=== PATIENT | female | born 1975 | race Hispanic/Latino ===

== ENCOUNTER 2021-04-15 02:07 | Emergency (ER) | payer OTHER, SELFPAY ==
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
--- NOTE | ~2021-04-15 | CT_ITS ---
EXAMINATION: CT cervical spine wo con DATE: 04/15/2021 04:30 INDICATION: Neck pain TECHNIQUE: Computed tomography (CT) of the cervical spine was performed without intravenous contrast. The dose-length product (DLP) was 456.48 mGy-cm. Automated exposure control and iterative reconstruc tion technique were employed. COMPARISON: None FINDINGS: There are 2 mm of retrolisthesis of C4 on C5. There is moderate loss of intervertebral disc space height at C4-5 and C5-6. The vertebral body heights are maintained. There are posterior endpla te osteophytes at C4-5, C5-6, and C6-7. The odontoid is intact. The prevertebral soft tissues are nor mal. No fracture is identified. There is moderate facet and uncovertebral joint osteoarthritis in the mid cervical spine. IMPRESSION: 1. Mild to moderate mid cervical spondylosis without acute findings. Reviewed, dictated and finalized at location A.
[2021-04-15 02:24] VITALS: BP 179/107; PULSE 61; RESP 18; TEMP 36.5; O2SAT 99
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
[2021-04-15] MEDS: KETOROLAC 30 MG/ML VIAL (*BKC) IV PUSH (02:52)
[2021-04-15 03:10] LABS: Basophils Percent Auto 0.7 % (0.2-1.2); Eosinophils Absolute Auto 0.1 K/mm3 (0-0.3); Eosinophils Percent Auto 1.5 % (0-4.4); Hematocrit 32.9 % (37.0-47.0); Hemoglobin 10.2 g/dL (12.0-15.0); Immature Granulocyte Absolute 0.02 K/mm3 (0.00-0.031); Immature Granulocyte Percent A 0.3 % (0-0.5); Lymphocytes Absolute Auto 2.11 K/mm3 (0.9-3.2); Lymphocytes Percent Auto 34.7 % (18.3-44.2); Mean Corpuscular Hemoglobin 25.2 pg (26-34); Mean Corpuscular Volume 81.4 fl (80-100); Monocytes Absolute Auto 0.8 K/mm3 (0.1-0.6); Monocytes Percent Auto 12.5 % (2.6-8.5); Neutrophils Absolute Auto 3.1 K/mm3 (1.3-6.7); Neutrophils Percent Auto 50.3 % (45.5-73.1); Platelet Count Result 343 k/mm3 (150-375); Red Blood Count 4.04 M/mm3 (4.2-5.4); Red Cell Distribution Width 15.6 % (11.5-14.5); White Blood Count 6.1 K/mm3 (4.5-10.0)
[2021-04-15 03:19] VITALS: BP 161/99; PULSE 56; RESP 16; TEMP 36.7; O2SAT 100
[2021-04-15 03:36] LABS: Add Urine Microscopic? YES; Appearance Urine Cloudy (Clear); Bacteria Urine Trace /hpf; Bilirubin Urine Negative (Negative); Blood Urine 1+ (Negative); Color Urine Yellow (Yellow); Glucose Urine UA Negative (Negative); Ketones Urine Negative (Negative); Leukocyte Esterase Ur 2+ LEU/UL (Negative); Mucus Urine Heavy /lpf; Nitrate Urine Negative (Negative); Protein Urine Negative (Negative); Specific Grav Ur 1.019 (1.001-1.035); Squamous Epithelial Cell Urine Occasional /hpf (Few); Urobilinogen Urine Negative mg/dL (<2.0); WBC Urine >75 /hpf
[2021-04-15 03:54] LABS: Alanine Aminotransferase 17 U/L (4-35); Alkaline Phosphatase 71 U/L (38-126); Anion Gap 6 mmol/L (8-16); Aspartate Amino Transferase 21 U/L (14-36); Bilirubin,Total 0.3 mg/dL (0.2-1.3); Blood Urea Nitrogen 11 mg/dL (7-17); Calcium 9.1 mg/dL (8.4-10.2); Carbon Dioxide 26 mmol/L (22-30); Chloride 104 mmol/L (98-107); Estimated CRCL calculation 111 ml/min; Estimated Glomerular Filt Rate > 60; Glucose 98 mg/dL (65-110); Lipase 37 U/L (23-300); Potassium 3.7 mmol/L (3.4-5.0); Sodium 136 mmol/L (137-145)
--- NOTE | 2021-04-15 04:11 | PC.NURSE ---
Pt to CT via stretcher at this time.
[2021-04-15 04:40] VITALS: BP 149/86; PULSE 65; RESP 18; O2SAT 100
[2021-04-15 05:41] VITALS: BP 161/85; PULSE 58; RESP 16; O2SAT 98
== END 2021-04-15 05:56 | disposition home or self-care (01) ==
PROVIDERS: Emergency Provider Emergency Medicine; PCP Registered Nurse
DX: S16.1XXA Strain of muscle, fascia and tendon at neck level, initial encounter (principal); R07.89 Other chest pain; N39.0 Urinary tract infection, site not specified; V49.40XA Driver injured in collision with unspecified motor vehicles in traffic accident, initial encounter
CPT/HCPCS: 36415; 71260; 72125; 74177; 80053; 81001; 81025; 83690; 85025; 87077; 87086; 87088; 87186; 96374; 99284; J1885; Q9967

== ENCOUNTER 2021-09-25 15:17 | Emergency (ER) | payer SELFPAY ==
[2021-09-25] VITALS (16 sets, daily range): BP systolic 150–187; BP diastolic 86–109; PULSE 53–74; RESP 13–22; TEMP 36.6; O2SAT 95–100
--- NOTE | ~2021-09-25 | XR_ITS ---
EXAMINATION: XR chest 2V EXAM DATE: 09/25/2021 16:06 INDICATION: chest pain . TECHNIQUE: Frontal and lateral projections of the chest obtained and reviewed. Comparison is made to prior examination from 04/17/2018. FINDINGS: The lungs are clear. There are no pleural effusions. The cardiomediastinal silhouette is within normal limits. There is no pneumothorax suspected. The bones and soft tissues are unremarkab le. IMPRESSION: No acute cardiopulmonary findings. Reviewed, dictated and finalized at location G. [employer]
--- NOTE | 2021-09-25 15:20 | ECG_ITS ---
Measurements Intervals [place] Rate: 62 P: 55 NC: 145 QRS: 3 QRSD: 84 T: 22 QT: 399 QTc: 407 Interpretive Statements SINUS RHYTHM VOLTAGE CRITERIA FOR LVH BASELINE ARTIFACT- I, III, AVL, AVF BORDERLINE ECG Electronically Signed On 09-25-2021 17:32:22 [employer] by Rudolph Cardona D.O.
[2021-09-25 15:36] LABS: Basophils Absolute Auto 0.1 K/mm3 (0.0-0.1); Basophils Percent Auto 0.8 % (0.2-1.2); Eosinophils Absolute Auto 0.2 K/mm3 (0-0.3); Eosinophils Percent Auto 2.6 % (0-4.4); Hematocrit 35.9 % (37.0-47.0); Hemoglobin 11.3 g/dL (12.0-15.0); Immature Granulocyte Absolute 0.01 K/mm3 (0.00-0.031); Immature Granulocyte Percent A 0.2 % (0-0.5); Lymphocytes Absolute Auto 2.19 K/mm3 (0.9-3.2); Lymphocytes Percent Auto 35.4 % (18.3-44.2); Mean Corpuscular HGB Conc 31.5 g/dl (32-36); Mean Corpuscular Hemoglobin 25.7 pg (26-34); Mean Corpuscular Volume 81.6 fl (80-100); Mean Platelet Volume 10.1 fl (7.4-10.4); Monocytes Absolute Auto 0.6 K/mm3 (0.1-0.6); Neutrophils Absolute Auto 3.2 K/mm3 (1.3-6.7); Platelet Count Result 324 k/mm3 (150-375); White Blood Count 6.2 K/mm3 (4.5-10.0)
[2021-09-25 15:46] LABS: INR 1.1; Prothrombin Time 13.7 Seconds (11.1-14.7)
[2021-09-25 15:47] LABS: Partial Thromboplastin Time 28.1 SECONDS (22.3-36.8)
[2021-09-25 15:53] LABS: Alanine Aminotransferase 23 U/L (4-35); Albumin Level 4.5 g/dL (3.5-5.1); Alkaline Phosphatase 82 U/L (38-126); Anion Gap 9 mmol/L (8-16); Aspartate Amino Transferase 29 U/L (14-36); Bilirubin,Total 0.2 mg/dL (0.2-1.3); Blood Urea Nitrogen 16 mg/dL (7-17); Calcium 8.8 mg/dL (8.4-10.2); Carbon Dioxide 26 mmol/L (22-30); Chloride 104 mmol/L (98-107); Estimated CRCL calculation 85 ml/min; Estimated Glomerular Filt Rate > 60; Glucose 107 mg/dL (65-110); Lipase 60 U/L (23-300); Potassium 3.8 mmol/L (3.4-5.0); Sodium 139 mmol/L (137-145)
[2021-09-25 16:05] LABS: Troponin I < 0.012 ng/mL (0.000-0.034)
--- NOTE | 2021-09-25 18:36 | ED.CHESTPAIN ---
HPI - Chest Pain General Chief Complaint: Chest Pain Stated Complaint: chest pain Time Seen by Provider: 09/25/21 17:51 History of Present Illness HPI narrative: 46-year-old female present emergency department for evaluation of intermittent chest pain. Patient states yesterday she was doing some cleaning and some heavy lifting when she had onset of anterior left-sided chest pain. Patient states when the pain occurs last approximately 1 hour. Patient states the pain is not worsened with exertion but is worsened with heavy lifting. Patient states after the pain resolved she did lift more items and had a recurrence of the pain. Patient denies any previous cardiac history. Patient denies any associated nausea vomiting or shortness of breath. Patient denies any significant past medical history Related Data Home Medications Medication Instructions Recorded Confirmed atenolol 04/15/21 Allergies Allergy/AdvReac Type Severity Reaction Status Date / Time No Known Allergies Allergy Verified 04/15/21 02:38 Review of Systems Review of Systems: CONSTITUTIONAL: Denies fever, chills, or sweats. EYES: Denies visual changes, redness, or discharge. ENT: Denies rhinorrhea, congestion, sore throat, or otalgia. CARDIOVASCULAR: Left-sided chest wall pain worsened with lifting, denies any palpitations and denies edema RESPIRATORY: Denies cough or dyspnea. GASTROINTESTINAL: Denies abdominal pain, nausea, vomiting, or diarrhea. GENITOURINARY: Denies dysuria or hematuria. SKIN: Denies rash or itching. MUSCULOSKELETAL: Denies back pain, joint pain, or myalgia. NEUROLOGIC: Denies headache, numbness, or weakness. PMFSH Social History Social History Gender identity (if verbalized by the patient): Female Exam Narrative: APPEARANCE: Well appearing, no pain, no distress, well-nourished. HEAD: normocephalic, atraumatic. EYES: PERRLA/EOMI, conjunctivae clear. NOSE: Normal no drainage THROAT: Pharynx clear, no exudate. NECK: Supple. No adenopathy, no masses. RESPIRATORY: Airway patent, respirations nonlabored. Clear to auscultation bilaterally, no rales, rhonchi, wheezing. CARDIOVASCULAR: Regular rate and rhythm without murmurs rubs or gallops. ABDOMINAL: Soft, nontender, nondistended, normal bowel sounds MUSCULOSKELETAL: Moves all extremities. Strength/ROM intact, No edema, No calf tenderness. Reproducible left-sided chest wall tenderness to palpation NEURO: Alert. Cranial nerves II through XII intact. Good gait. Good coordination SKIN: Warm, dry. Normal Color Course Course Emergency Course: Patient's labs and imaging were reviewed. Patient had negative serial troponins. Patient's chest x-ray showed no acute cardiopulmonary abnormality. Patient''s EKG showed no evidence of acute STEMI. Clinical impression was chest wall pain and atypical chest pain Disposition was discharged home Condition was stable at time of discharge Vital Signs Vital signs: Vital Signs Temperature 98 F 09/25/21 15:32 Pulse Rate 70 09/25/21 15:32 Respiratory Rate 18 09/25/21 15:32 Blood Pressure 187/98 H 09/25/21 15:32 Pulse Oximetry 95 09/25/21 15:32 Temperature 98 F 09/25/21 15:32 Pulse Rate 59 L 09/25/21 22:46 Respiratory Rate 17 09/25/21 22:46 Blood Pressure 169/91 H 09/25/21 22:46 Pulse Oximetry 100 09/25/21 22:46 MDM - Chest Pain Differential Diagnosis Differential diagnosis: Likely atypical chest pain and chest pain Lab Data Attestation: I reviewed the patient's lab results. Result diagrams: 09/25/21 15:29 09/25/21 15:29 Labs: Lab Results 09/25/21 09/25/21 09/25/21 Range/Units 15:29 15:29 15:29 WBC 6.2 (4.5-10.0) K/mm3 RBC 4.40 (4.2-5.4) M/mm3 Hgb 11.3 L (12.0-15.0) g/dL Hct 35.9 L (37.0-47.0) % MCV 81.6 (80-100) fl MCH 25.7 L (26-34) pg MCHC 31.5 L (32-36) g/dl RDW 15.0 H (1
[2021-09-25] MEDS: ASPIRIN 81 MG CHEWABLE TABLET 324 MG PO (18:41)
[2021-09-25 18:43] LABS: Troponin I < 0.012 ng/mL (0.000-0.034)
[2021-09-25 21:41] LABS: Troponin I < 0.012 ng/mL (0.000-0.034)
== END 2021-09-25 23:08 | disposition home or self-care (01) ==
PROVIDERS: Emergency Provider Emergency Medicine; PCP Registered Nurse
DX: R07.89 Other chest pain (principal); R94.31 Abnormal electrocardiogram [ECG] [EKG]; X50.0XXA Overexertion from strenuous movement or load, initial encounter
CPT/HCPCS: 36415; 71046; 80053; 83690; 84484; 85025; 85610; 85730; 93005; 99284; A9270

== ENCOUNTER 2022-07-25 01:01 | Emergency (ER) | payer SELFPAY ==
[2022-07-25] VITALS (36 sets, daily range): BP systolic 143–205; BP diastolic 87–123; PULSE 50–80; RESP 11–23; TEMP 36.8; O2SAT 96–100
--- NOTE | ~2022-07-25 | XR_ITS ---
EXAMINATION: XR chest 2V DATE: 07/25/2022 03:10 INDICATION: Chest pain. TECHNIQUE: Frontal and lateral views of the chest were obtained. COMPARISON: Chest 2 views 09/25/2021, chest CT 04/15/2021 FINDINGS: There is mild atelectasis in left lower lung zone. No pleural effusion or pneumothorax. The heart size is normal. IMPRESSION: 1. Mild atelectasis in left lower lung zone. Reviewed, dictated and finalized at location A. [employer]
--- NOTE | 2022-07-25 01:16 | ECG_ITS ---
Measurements Intervals [place] Rate: 69 P: 52 GA: 151 QRS: 12 QRSD: 85 T: 29 QT: 387 QTc: 416 Interpretive Statements SINUS RHYTHM DELAYED PRECORDIAL R/S TRANSITION VOLTAGE CRITERIA FOR LVH BORDERLINE ECG COMPARED TO ECG 09/25/2021 15:21:59 NO SIGNIFICANT CHANGES Electronically Signed On 07-25-2022 7:48:48 ANVILSMITH by Rudolph Cardona D.O.
--- NOTE | 2022-07-25 02:01 | ED.CHESTPAIN ---
HPI - Chest Pain General Chief Complaint: Chest Pain Stated Complaint: CP Time Seen by Provider: 07/25/22 01:39 Source: patient and RN notes reviewed Mode of arrival: ambulatory Limitations: language barrier (diplomatic interpreter use) History of Present Illness HPI narrative: This is a 47 year old female who presents for evaluation of chest pain. She states she developed midsternal chest pain starting yesterday. She describes her pain has pressure that has been constant. She reports her pain went into her back today. Her pain seems worse with cough. She denies associated diaphoresis, sob, nausea, vomiting or fever. She took tylenol at 8 pm with out relief. She denies any previous medical problems. She rates her pain as 7/10. MD complaint: chest pain Onset (ago): day(s) Timing of current episode: constant Onset: other (coughing) Pain radiation: back Quality: heaviness Relieving factors: nothing Risk Factors Coronary artery disease risk factors: none Related Data Home Medications Medication Instructions Recorded Confirmed atenolol 50 mg tablet 04/15/21 Allergies Allergy/AdvReac Type Severity Reaction Status Date / Time No Known Allergies Allergy Verified 04/15/21 02:38 Review of Systems Review of Systems: All systems reviewed & are unremarkable except as noted in HPI and below Constitutional: Constitutional: Denies chills, Denies fatigue and Denies fever(s) Cardiovascular: Cardiovascular: Reports chest pain and Reports radiating jaw, neck or arm pain Respiratory: Respiratory: Denies chest congestion and Reports cough Gastrointestinal: Gastrointestinal: Denies abdominal pain, Denies nausea and Denies vomiting PMFSH Past Medical History Medical History (Updated 07/25/22 @ 07:03 by Zita Gould MD) Patient denies medical problems Surgical History Surgical History (Updated 07/25/22 @ 02:05 by Zita Gould MD) No pertinent past surgical history Social History Social History (Updated 07/25/22 @ 02:05 by Zita Gould MD) Smoking status: Never smoker Substance use: never Gender identity (if verbalized by the patient): Female Exam Narrative: GENERAL: Well-appearing, well-nourished, and in no acute distress. HEAD: Normocephalic, atraumatic EYES: PERRLA and EOMI, conjunctiva clear without discharge THROAT:Mucous membranes moist, Oropharynx normal without erythema, exudate, peritonsillar swelling or fluctuance NECK: Supple, without lymphadenopathy or mass RESPIRATORY: No respiratory distress, Airway patent, Respirations non-labored, Clear to auscultation without rales, rhonchi or wheeze HEART: Regular rate and rhythm. No murmur heard. Normal peripheral pulses. ABDOMEN: Soft, nontender, nondistended, normal active bowel sounds. No masses. No rebound or guarding, No organomegaly. EXTREMITIES: No edema, normal strength with full range of motion. SKIN: Warm, dry, normal color without rash NEURO: Alert and oriented x3. CN 2-12 grossly intact. No focal deficits. PSYCH: Normal mood and affect. Course Reevaluation(s) Reevaluation #1: Patient states her chest pain has completely resolved. She rates her pain as 0/10. I Discussed case with Dr. Cardona. he states patient can be discharged and follow up in clinic . Date: 07/25/22 Time: 04:19 Reevaluation #2: Patient states her chest pain and back pain have still resolved. Troponin x 2 . d dimer negative. She states she is on antihypertensives but she did not take it yesterday. I discussed discharge and follow up plan Date: 07/25/22 Time: 07:00 Vital Signs Vital signs: Vital Signs Temperature 98.2 F 07/25/22 01:09 Pulse Rate 72 07/25/22 01:09 Respiratory Rate 14 07/25/22 01:09 Blood Pressure 205/100 H 07/25/22 01:09 Pulse Oximetry 100 07/25/22 01:09 Oxygen Delivery Room Air 07/25/22 01:09 Temperature 98.2 F 07/25/22 01:09 Pulse Rate 64 07/25/22 05:51 Respiratory Rate 18 07/25/22 05:51 Blood Pre
[2022-07-25] MEDS: ASPIRIN 81 MG CHEWABLE TABLET 324 MG PO (02:20)
[2022-07-25] MEDS: NITROGLYCERIN SL 0.4 MG TABLET SUBLINGUAL (02:21)
[2022-07-25 02:34] LABS: Basophils Absolute Auto 0.1 K/mm3 (0.0-0.1); Eosinophils Absolute Auto 0.3 K/mm3 (0-0.3); Eosinophils Percent Auto 4.4 % (0-4.4); Hematocrit 33.4 % (37.0-47.0); Hemoglobin 10.4 g/dL (12.0-15.0); Immature Granulocyte Absolute 0.02 K/mm3 (0.00-0.031); Immature Granulocyte Percent A 0.3 % (0-0.5); Lymphocytes Absolute Auto 2.17 K/mm3 (0.9-3.2); Lymphocytes Percent Auto 35.1 % (18.3-44.2); Mean Corpuscular HGB Conc 31.1 g/dl (32-36); Mean Corpuscular Hemoglobin 25.4 pg (26-34); Mean Corpuscular Volume 81.5 fl (80-100); Mean Platelet Volume 10.4 fl (7.4-10.4); Monocytes Absolute Auto 0.8 K/mm3 (0.1-0.6); Monocytes Percent Auto 12.5 % (2.6-8.5); Neutrophils Absolute Auto 2.9 K/mm3 (1.3-6.7); Neutrophils Percent Auto 46.7 % (45.5-73.1); Platelet Count Result 352 k/mm3 (150-375); Red Cell Distribution Width 15.9 % (11.5-14.5); White Blood Count 6.2 K/mm3 (4.5-10.0)
--- NOTE | 2022-07-25 02:46 | PC.NURSE ---
patient received 1 nitro with relief from 03/20-12/19. per Dr Gould, another nitro given
[2022-07-25 02:52] LABS: Alanine Aminotransferase 17 U/L (6-35); Albumin Level 4.3 g/dL (3.5-5.1); Alkaline Phosphatase 86 U/L (38-126); Anion Gap 9 mmol/L (8-16); Aspartate Amino Transferase 21 U/L (14-36); Bilirubin,Total 0.3 mg/dL (0.2-1.3); Blood Urea Nitrogen 14 mg/dL (7-17); Calcium 8.7 mg/dL (8.4-10.2); Carbon Dioxide 27 mmol/L (22-30); Chloride 104 mmol/L (98-107); Estimated CRCL calculation 90 ml/min; Estimated Glomerular Filt Rate > 60; Glucose 114 mg/dL (65-110); Lipase 56 U/L (23-300); Potassium 3.4 mmol/L (3.4-5.0); Sodium 140 mmol/L (137-145)
--- NOTE | 2022-07-25 02:58 | PC.NURSE ---
after patient received 2nd dose of nitro which took chest pain from 12/19 to 11/18. Per Dr. Gould, patient received 3rd dose
[2022-07-25 03:03] LABS: Troponin I < 0.012 ng/mL (0.000-0.034)
[2022-07-25 03:10] LABS: Influenza A QL RT-PCR Negative (Negative); Influenza B QL RT-PCR Negative (Negative); SARS-CoV-2 RNA PCR Negative
[2022-07-25 03:11] LABS: INR 1.1; Prothrombin Time 13.6 Seconds (11.1-14.7)
[2022-07-25 03:12] LABS: Partial Thromboplastin Time 29.2 SECONDS (22.3-36.8)
[2022-07-25 03:17] LABS: D Dimer 0.39 ug/mL (<0.48)
[2022-07-25 06:10] LABS: Troponin I < 0.012 ng/mL (0.000-0.034)
== END 2022-07-25 07:36 | disposition home or self-care (01) ==
PROVIDERS: Emergency Provider General Practice
DX: R07.89 Other chest pain (principal); I10 Essential (primary) hypertension; R94.31 Abnormal electrocardiogram [ECG] [EKG]
CPT/HCPCS: 36415; 71046; 80053; 83690; 84484; 85025; 85380; 85610; 85730; 87636; 93005; 99284; A9270

== ENCOUNTER 2023-05-24 22:08 | Emergency (ER) | payer SELFPAY ==
--- NOTE | ~2023-05-24 | CT_ITS ---
Non-contrast Head CT History: Headache, hypertension Technique: Axial non-contrast imaging of the brain was performed. Dose reduction technique was used on this scan by utilizing automated exposure control and iterative reconstruction technique. The dose -length product (DLP) was 605.33 mGy-cm. Findings: There is no evidence of intracranial hemorrhage, mass lesion, or acute infarct. Brain par enchyma appears normal. The ventricles and subarachnoid spaces are normal in size. The calvarium ap pears normal. The visualized paranasal sinuses and mastoid air cells are clear. Impression: No significant abnormality seen. Reviewed, dictated and finalized at location . Impression: No significant abnormality seen.
--- NOTE | ~2023-05-24 | XR_ITS ---
EXAMINATION: XR chest 2V DATE: 05/24/2023 22:57 INDICATION: Chest pain TECHNIQUE: PA and lateral views of the chest are obtained. COMPARISON: 07/25/2022 FINDINGS: There are interstitial opacities in the mid and lower lung zone predominance. No pleural ef fusion or pneumothorax. The cardiomediastinal silhouette is normal. There is moderate thoracic spondy losis. IMPRESSION: 1. Interstitial opacities in the mid and lower lung zones, likely pulmonary edema. Reviewed, dictated and finalized at location F. IMPRESSION: 1. Interstitial opacities in the mid and lower lung zones, likely pulmonary anabell ma.
--- NOTE | 2023-05-24 22:10 | ECG_ITS ---
Measurements Intervals [place] Rate: 72 P: 49 [place]: 153 QRS: 12 QRSD: 113 T: 54 QT: 393 QTc: 432 Interpretive Statements SINUS RHYTHM LEFT VENTRICULAR HYPERTROPHY AND ST-T CHANGE BORDERLINE ECG COMPARED TO ECG 07/25/2022 01:08:48 NO SIGNIFICANT CHANGES Electronically Signed On 05-25-2023 6:35:09 CDT by Rudolph Cardona D.O.
[2023-05-24 22:34] VITALS: BP 197/97; PULSE 74; RESP 20; TEMP 36.6; O2SAT 100
[2023-05-24 22:38] LABS: Basophils Absolute Auto 0.1 K/mm3 (0.0-0.1); Basophils Percent Auto 1.1 % (0.2-1.2); Eosinophils Absolute Auto 0.3 K/mm3 (0-0.3); Eosinophils Percent Auto 4.7 % (0-4.4); Hematocrit 31.8 % (37.0-47.0); Hemoglobin 9.6 g/dL (12.0-15.0); Immature Granulocyte Absolute 0.01 K/mm3 (0.00-0.031); Immature Granulocyte Percent A 0.2 % (0-0.5); Lymphocytes Absolute Auto 1.51 K/mm3 (0.9-3.2); Lymphocytes Percent Auto 22.7 % (18.3-44.2); Mean Corpuscular HGB Conc 30.2 g/dl (32-36); Mean Corpuscular Hemoglobin 23.4 pg (26-34); Mean Corpuscular Volume 77.6 fl (80-100); Mean Platelet Volume 10.8 fl (7.4-10.4); Monocytes Absolute Auto 1.1 K/mm3 (0.1-0.6); Monocytes Percent Auto 16.4 % (2.6-8.5); Neutrophils Absolute Auto 3.7 K/mm3 (1.3-6.7); Neutrophils Percent Auto 54.9 % (45.5-73.1); Platelet Count Result 311 k/mm3 (150-375); Red Cell Distribution Width 16.7 % (11.5-14.5); White Blood Count 6.7 K/mm3 (4.5-10.0)
[2023-05-24 22:48] LABS: Prothrombin Time 13.8 Seconds (11.1-14.7)
[2023-05-24 22:49] LABS: Partial Thromboplastin Time 27.1 SECONDS (22.3-36.8)
[2023-05-24 22:52] LABS: Alanine Aminotransferase 20 U/L (6-35); Albumin Level 4.1 g/dL (3.5-5.1); Alkaline Phosphatase 81 U/L (38-126); Anion Gap 6 mmol/L (8-16); Aspartate Amino Transferase 27 U/L (14-36); Bilirubin,Total 0.2 mg/dL (0.2-1.3); Blood Urea Nitrogen 13 mg/dL (7-17); Calcium 8.9 mg/dL (8.4-10.2); Carbon Dioxide 28 mmol/L (22-30); Chloride 102 mmol/L (98-107); Estimated CRCL calculation 112 ml/min; Estimated Glomerular Filt Rate > 60; Glucose 138 mg/dL (65-110); Lipase 80 U/L (23-300); Potassium 3.5 mmol/L (3.4-5.0); Sodium 136 mmol/L (137-145)
[2023-05-24 23:03] LABS: Troponin I < 0.012 ng/mL (0.000-0.034)
--- NOTE | 2023-05-25 02:01 | ED.CHESTPAIN ---
HPI - Chest Pain General Chief Complaint: Chest Pain Stated Complaint: chest pain Time Seen by Provider: 05/25/23 01:38 History of Present Illness HPI narrative: 47 y/o F with history of hypertension reports to the ED for evaluation for chest pain since yesterday. Pt states the chest pain is in her left anterior chest wall and radiates to her back. She describes the pain as pleuritic and worse with exertion. Pt reports associated dyspnea. She denies cough but does report a subjective fever yesterday. Denies BLE, recent surgeries or hospitalizations, nausea or vomiting, diaphoresis. Denies history of DC, CABG, stent placement, CVA. Her father has a history of CVA. She is also reporting a bitemporal headache since yesterday. She states the pain is 5 out of 10. Denies vision changes, focal numbness or weakness, head trauma, nuchal rigidity. Pt states she has not taken her atenolol in 4 months because she ran out. Related Data Home Medications Medication Instructions Recorded Confirmed atenolol 50 mg tablet 04/15/21 Allergies Allergy/AdvReac Type Severity Reaction Status Date / Time No Known Allergies Allergy Verified 05/24/23 22:37 Review of Systems Review of Systems: CONSTITUTIONAL: Denies fever, chills EYES: Denies visual changes, redness, or discharge. ENT: Denies rhinorrhea, congestion, sore throat, or otalgia. CARDIOVASCULAR: See HPI RESPIRATORY: See HPI GASTROINTESTINAL: Denies abdominal pain, nausea, vomiting, or diarrhea. GENITOURINARY: Denies dysuria or hematuria. SKIN: Denies rash or itching. MUSCULOSKELETAL: Denies back pain, joint pain, or myalgia. NEUROLOGIC: Denies headache, numbness, dizziness, or weakness. PSYCHIATRIC: Denies anxiety or depression. [facility] Past Medical History Medical History Patient denies medical problems Surgical History Surgical History No pertinent past surgical history Social History Social History Smoking status: Never smoker Substance use: never Gender identity (if verbalized by the patient): Female Exam Narrative: GENERAL: Well-appearing, in no acute distress. Patient resting comfortably in exam bed. She is pleasant and conversational. HEAD: Normocephalic EYES: PERRLA ENT: Nares clear. Mucous membranes moist. Oropharynx without tonsillar hypertrophy exudate or other lesions. NECK: Supple. No nuchal rigidity. CHEST: No respiratory distress. Clear to auscultation, no adventitious breath sounds. HEART: Regular rate and rhythm. No murmur heard. Normal peripheral pulses. ABDOMEN: Soft, nontender, normal active bowel sounds. EXTREMITIES: Normal range of motion. No edema. Negative Homans bilaterally. SKIN: Warm, dry, no rash. NEURO: No focal deficits. Alert and oriented x3. Cranial nerves II through XII intact. Strength 5/5 in BUE and BLE. Sensation intact throughout. Normal [id number]. No pronator drift. PSYCH: Normal mood and affect. Course Vital Signs Vital signs: Vital Signs Temperature 97.9 F 05/24/23 22:34 Pulse Rate 74 05/24/23 22:34 Respiratory Rate 20 05/24/23 22:34 Blood Pressure 197/97 H 05/24/23 22:34 Pulse Oximetry 100 05/24/23 22:34 Oxygen Delivery Room Air 05/24/23 22:34 Temperature 97.9 F 05/24/23 22:34 Pulse Rate 74 05/24/23 22:34 Respiratory Rate 20 05/24/23 22:34 Blood Pressure 197/97 H 05/24/23 22:34 Pulse Oximetry 100 05/24/23 22:34 Oxygen Delivery Room Air 05/24/23 22:34 MDM - Chest Pain MDM Narrative Medical decision making narrative: 47-year-old female reports for evaluation for chest pain and headache since yesterday. See HPI for further history. Vitals significant for hypertension for 197/97, otherwise unremarkable. She is satting 100% on room air. She is well-appearing on exam. No f
[2023-05-25] MEDS: ASPIRIN 81 MG CHEWABLE TABLET 324 MG PO (02:25)
[2023-05-25] MEDS: NITROGLYCERIN SL 0.4 MG TABLET SUBLINGUAL (02:27)
[2023-05-25 02:33] LABS: D Dimer 0.34 ug/mL (<0.48)
[2023-05-25 02:37] LABS: NT Pro B Type Natriuretic Pept 811 pg/mL (19.9-100)
[2023-05-25 02:40] LABS: Troponin I < 0.012 ng/mL (0.000-0.034)
[2023-05-25 02:56] LABS: Add Urine Microscopic? YES; Appearance Urine Clear (Clear); Bacteria Urine None Seen /hpf; Bilirubin Urine Negative (Negative); Color Urine Yellow (Yellow); Glucose Urine UA Negative (Negative); Ketones Urine Negative (Negative); Leukocyte Esterase Ur Negative LEU/UL (Negative); Nitrate Urine Negative (Negative); Non Pathogenic Casts 0-2; Protein Urine Negative (Negative); RBC Urine 0-2 /hpf (0-2); Specific Grav Ur 1.011 (1.001-1.035); Squamous Epithelial Cell Urine Occasional /hpf (Few); Urobilinogen Urine 0.2 mg/dL (<2.0); WBC Urine 0-5 /hpf; pH Urine 6.5 (5.0-9.0)
[2023-05-25] MEDS: ACETAMINOPHEN 500 MG TABLET 1000 MG PO (04:31)
[2023-05-25] MEDS: FUROSEMIDE TABLET 20 MG, FUROSEMIDE TABLET 40 MG 60 MG PO (04:31)
[2023-05-25 04:41] VITALS: BP 170/100; PULSE 93; RESP 17; O2SAT 97
== END 2023-05-25 04:43 | disposition home or self-care (01) ==
PROVIDERS: Emergency Medicine; Emergency Provider Physician Assistant
DX: R07.89 Other chest pain (principal); I10 Essential (primary) hypertension; I51.7 Cardiomegaly
CPT/HCPCS: 36415; 70450; 71046; 80053; 81001; 83690; 83880; 84484; 85025; 85380; 85610; 85730; 93005; 99284; A9270

== ENCOUNTER 2023-10-21 14:12 | Emergency (ER) | payer SELFPAY ==
--- NOTE | ~2023-10-21 | CT_ITS ---
Clinical Indication: Chest pain, back pain CT Scan of the Chest with Contrast: Technique: Contiguous sections were acquired throughout the chest after intravenous administration of 100 cc of Omnipaque 350. Dose reduction technique was used on this scan by utilizing automated expos ure control and iterative reconstruction technique. The dose-length product (DLP) was 239.20 mGy-cm. COMPARISON: 04/15/2021 Findings: There is no evidence of any significant mediastinal, hilar or axillary lymphadenopathy. There is no f illing defect in the pulmonary arterial tree to suggest pulmonary embolus. There is no evidence of ao rtic dissection or aneurysm. There is no evidence of pleural or pericardial effusion. The lungs are clear, aside from minimal atelectatic changes. Images through the upper abdomen reveal no abnormalities. Impression: No evidence of pulmonary embolus, aortic dissection, or aortic aneurysm. No significant pulmonary abnormality. Reviewed, dictated and finalized at [facility]. NAUTICAL DESIGN ENGINEER Impression: No evidence of pulmonary embolus, aortic dissection, or aortic aneurysm. No significant pulmonary abnormality.
[2023-10-21 14:23] VITALS: BP 184/100; PULSE 76; RESP 16; TEMP 36.7; O2SAT 99
[2023-10-21 18:03] VITALS: BP 150/82; PULSE 52; RESP 20; O2SAT 98
[2023-10-21 18:21] VITALS: BP 138/90; PULSE 52; RESP 15; O2SAT 100
--- NOTE | 2023-10-21 19:23 | ED.BACK ---
HPI - Back Pain/Injury General Chief Complaint: Back Pain/Injury Stated Complaint: BACK PAIN X3D Time Seen by Provider: 10/21/23 17:57 Source: patient and family Limitations: no limitations and language barrier (glass science engineer used, ID # [id number]) History of Present Illness HPI Narrative: Patient is a 48-year-old female presents to the emergency department complaining of back pain. Patient states the pain has been going on for the past 3 days, originally was calmer and going and now is more constant, describes it as the top of her back more on the right side, admits to associated paresthesias radiating down her right arm throughout the entirety of the right arm addition to some associated mild shortness of breath. Patient admits to history of this pain in the past she was an accident many years ago has been having pain ever since but it seems to be getting worse denies ever seeing a spinal specialist, admits to coming recently to the hospital was given medications of which she is unsure as to what they were but they did help. Patient is taking Tylenol to do her own. Patient denies any recent injuries, recent illness, fever, cough abdominal pain, nausea, vomiting, diarrhea, melena, hematochezia, urinary discomfort, weakness, vision changes, difficulty swallowing, sore throat, nasal congestion. Patient also states that seems like the pain and back is also associated with some slight chest discomfort which she is unable to localize is unsure if they are associated with there is radiation 1 to the other. Patient is to history of high blood pressure. Patient denies a history of diabetes or tobacco use or high cholesterol. Patient denies history of blood clots or unilateral lower extremity swelling. Related Data Home Medications Medication Instructions Recorded Confirmed lisinopril-hydrochlorothiazide 10/21/23 Allergies Allergy/AdvReac Type Severity Reaction Status Date / Time No Known Allergies Allergy Verified 10/21/23 18:22 Review of Systems Review of Systems: A 10 system review of systems was completed on the patient and is negative except for what is stated in the HPI. Nursing and ancillary documentation was reviewed. [facility] Past Medical History Medical History Patient denies medical problems Surgical History Surgical History No pertinent past surgical history Social History Social History Smoking status: Never smoker Substance use: never Gender identity (if verbalized by the patient): Female Comments At time of signature, I have reviewed and agree with nursing past medical, surgical, social and family history unless otherwise noted. Please see the nursing chart for further information. There is no relevant family history pertinent to the presenting complaint. Exam Narrative: CONST: No acute distress. Well nourished. HENMT: Head is normocephalic and atraumatic. Moist mucous membranes. No posterior oropharynx erythema. EYES: No conjunctival icterus, injection, or pallor. PERRL. NECK: No meningeal signs. No JVD. No palpable cervical lymphadenopathy. No carotid bruits on auscultation bilaterally. RESP: Able to speak in full sentences. Normal respiratory effort. CTAB. CARDIO: Regular rate. Regular rhythm. 2+ DP and radial pulses bilaterally. GI: Nondistended. No tenderness to palpation. Soft. : No CVA tenderness to palpation. SKIN: No rashes or lesions noted on exposed skin. NEURO: Oriented x3. Moves all extremities. No focal neurological deficits. Sensation intact to light touch throughout all 4 extremities. Ring Cutter Lathe Operator strength is 5/5 in bilateral upper extremities. Motor strength is 5/5 in all 4 extremities. EXTREM/MSK/BACK: No pedal edema. No midline vertebral tenderness to palpation or step-offs. No extremity te
--- NOTE | 2023-10-21 19:28 | ECG_ITS ---
Measurements Intervals [place] Rate: 43 P: 31 ME: 151 QRS: 16 QRSD: 92 T: 66 QT: 468 QTc: 399 Interpretive Statements SINUS BRADYCARDIA NONSPECIFIC ST & T-WAVE ABNORMALITY ABNORMAL ECG COMPARED TO ECG 05/24/2023 22:28:11 SINUS BRADYCARDIA NOW PRESENT T-WAVE ABNORMALITY NOW PRESENT Electronically Signed On 10-22-2023 8:19:18 HOTEL MAINTENANCE ENGINEER by Severo South M.D.
[2023-10-21 20:17] LABS: Influenza A QL RT-PCR Negative (Negative); Influenza B QL RT-PCR Negative (Negative); RSV RNA, RT-PCR Negative (Negative); SARS-CoV-2 RNA PCR Negative (Negative)
[2023-10-21] MEDS: diazePAM (*CRX) 5 MG TABLET PO (20:35)
[2023-10-21] MEDS: SODIUM CHLORIDE 0.9% IV 1,000 ML 999 ML IV CONT (20:37)
[2023-10-21 20:49] LABS: Basophils Percent Auto 0.6 % (0.2-1.2); Eosinophils Absolute Auto 0.1 K/mm3 (0-0.3); Eosinophils Percent Auto 2.2 % (0-4.4); Hematocrit 32.4 % (37.0-47.0); Hemoglobin 9.7 g/dL (12.0-15.0); Immature Granulocyte Absolute 0.01 K/mm3 (0.00-0.031); Immature Granulocyte Percent A 0.2 % (0-0.5); Lymphocytes Absolute Auto 2.04 K/mm3 (0.9-3.2); Lymphocytes Percent Auto 32.1 % (18.3-44.2); Mean Corpuscular HGB Conc 29.9 g/dl (32-36); Mean Corpuscular Hemoglobin 23.4 pg (26-34); Mean Corpuscular Volume 78.3 fl (80-100); Mean Platelet Volume 10.6 fl (7.4-10.4); Monocytes Absolute Auto 0.8 K/mm3 (0.1-0.6); Monocytes Percent Auto 13.1 % (2.6-8.5); Neutrophils Absolute Auto 3.3 K/mm3 (1.3-6.7); Neutrophils Percent Auto 51.8 % (45.5-73.1); Platelet Count Result 297 k/mm3 (150-375); Red Blood Count 4.14 M/mm3 (4.2-5.4); Red Cell Distribution Width 18.2 % (11.5-14.5); White Blood Count 6.4 K/mm3 (4.5-10.0)
[2023-10-21 21:08] LABS: Anisocytosis 1+ (NORMAL); Large Platelets Present; Platelet Estimate Adequate (Adequate)
[2023-10-21 21:09] LABS: Ovalocytes 1+ (NORMAL); Schistocytes None Seen (NORMAL)
[2023-10-21 21:16] LABS: Giant Platelets Present
[2023-10-21 21:18] LABS: Hypochromasia 2+ (NORMAL)
[2023-10-21 21:22] LABS: Alanine Aminotransferase 18 U/L (6-35); Albumin Level 4.1 g/dL (3.5-5.1); Alkaline Phosphatase 71 U/L (38-126); Anion Gap 3 mmol/L (8-16); Aspartate Amino Transferase 26 U/L (14-36); Bilirubin,Total 0.3 mg/dL (0.2-1.3); Blood Urea Nitrogen 13 mg/dL (7-17); Carbon Dioxide 29 mmol/L (22-30); Chloride 105 mmol/L (98-107); Estimated Glomerular Filt Rate > 60; Glucose 97 mg/dL (65-110); Lipase 58 U/L (23-300); Magnesium 2.1 mg/dL (1.6-2.3); Sodium 137 mmol/L (137-145)
[2023-10-21 21:22] LABS: SPREG INTERNAL CONTROL Positive; Serum Qual hCG Negative
[2023-10-21 21:23] LABS: Troponin I < 0.012 ng/mL (0.000-0.034)
[2023-10-21 21:30] LABS: Creatine Kinase 59 U/L (30-135)
[2023-10-21] MEDS: KETOROLAC 15 MG/ML VIAL (*BKC) 30 MG IV PUSH (22:15)
[2023-10-21 22:47] VITALS: BP 140/86; PULSE 52; RESP 15; O2SAT 100
== END 2023-10-21 22:48 | disposition home or self-care (01) ==
PROVIDERS: Emergency Provider Student in an Organized Health Care Education/Training Program
DX: M54.12 Radiculopathy, cervical region (principal); M62.830 Muscle spasm of back; R07.9 Chest pain, unspecified; Z20.822 Contact with and (suspected) exposure to COVID-19
CPT/HCPCS: 36415; 71275; 80053; 82550; 83690; 83735; 84484; 84703; 85025; 87637; 93005; 96361; 96374; 99284; A9270; J1885; J7030; Q9967

== ENCOUNTER 2024-01-25 14:05 | Emergency (ER) | payer SELFPAY ==
[2024-01-25] VITALS (11 sets, daily range): BP systolic 158–195; BP diastolic 85–157; PULSE 59–85; RESP 16–20; TEMP 36.8; O2SAT 95–100
--- NOTE | ~2024-01-25 | XR_ITS ---
EXAMINATION: XR shoulder LT min 2V DATE: 01/25/2024 15:10 INDICATION: Left shoulder pain. TECHNIQUE: 4 views of left shoulder were obtained. COMPARISON: None. FINDINGS: Bone alignment is normal. No fracture. Glenohumeral joint is normal. There is severe acromi oclavicular joint osteoarthritis. There is calcific tendinitis of the rotator cuff. IMPRESSION: 1. Severe acromioclavicular joint osteoarthritis. 2. Calcific tendinitis of left rotator cuff. Reviewed, dictated and finalized at location E.
--- NOTE | 2024-01-25 14:14 | ECG_ITS ---
SEE SCANNED COPY FOR CONFIRMED REPORT MTDD
--- NOTE | 2024-01-25 15:48 | ED.GENADULT ---
HPI - General Adult General Chief complaint: Recheck/Abnormal Lab/Rx Stated complaint: L arm and shoulder pain Time Seen by Provider: 01/25/24 15:02 History of Present Illness HPI narrative: 48-year-old female presented emergency department for evaluation of left shoulder pain this been ongoing for the last 3 days. Patient states initially the pain is very reproducible with motion. Patient denies any specific falls or injuries. Patient states when she lifts her left arm above her head she has left shoulder pain. Patient denies any associated chest pain or shortness of breath. Patient had a follow-up with her primary care physician today and was told to present to the emergency department for her hypertension. Patient states she has not taken her blood pressure medications recently. Primary CT shows that she has not filled her medications since September. Related Data Home Medications Medication Instructions Recorded Confirmed lisinopril-hydrochlorothiazide 10/21/23 Allergies Allergy/AdvReac Type Severity Reaction Status Date / Time No Known Allergies Allergy Verified 01/25/24 14:14 Review of Systems Review of Systems: All systems reviewed & are unremarkable except as noted in HPI and below PMFSH Past Medical History Medical History Patient denies medical problems Surgical History Surgical History No pertinent past surgical history Social History Social History Smoking status: Never smoker Substance use: never Gender identity (if verbalized by the patient): Female Exam Narrative: APPEARANCE: Well appearing, no pain, no distress, well-nourished. HEAD: normocephalic, atraumatic. EYES: PERRLA/EOMI, conjunctivae clear. NOSE: Normal no drainage EARS:TMS clear with good light reflex. THROAT: Pharynx clear, no exudate. NECK: Supple. No adenopathy, no masses. RESPIRATORY: Airway patent, respirations nonlabored. Clear to auscultation bilaterally, no rales, rhonchi, wheezing. CARDIOVASCULAR: Regular rate and rhythm without murmurs rubs or gallops. ABDOMINAL: Soft, nontender, nondistended, normal bowel sounds MUSCULOSKELETAL: Moves all extremities. Strength/ROM intact, No edema, No calf tenderness. NEURO: Alert. Cranial nerves II through XII intact. Good gait. Good coordination SKIN: Warm, dry. Normal Color Course Vital Signs Vital signs: Vital Signs Temperature 98.2 F 01/25/24 14:11 Pulse Rate 85 01/25/24 14:11 Respiratory Rate 16 01/25/24 14:11 Blood Pressure 194/85 H 01/25/24 14:11 Pulse Oximetry 99 01/25/24 14:11 Temperature 98.2 F 01/25/24 14:11 Pulse Rate 59 L 01/25/24 16:59 Respiratory Rate 20 01/25/24 16:59 Blood Pressure 181/93 H 01/25/24 16:59 Pulse Oximetry 99 01/25/24 16:59 Medical Decision Making MDM Narrative Medical decision making narrative: 48-year-old female presents emergency department for evaluation of left shoulder pain and hypertension. Patient has not been taking her blood pressure medications. Patient was treated with blood pressure medications emergency department and blood pressure is improving. Patient is asymptomatic regarding her blood pressure. Patient does have reproducible left shoulder pain with evidence of osteoarthritis and rotator cuff calcifications. Patient was encouraged of close follow-up with Orthopedics. Patient was provided a sling for pain control. Differential Diagnosis Differential Diagnosis: rotator cuff injury, shoulder fracture, shoulder dislocation, shoulder subluxation Vital Signs Vital Signs: Vital Signs Temperature 98.2 F 01/25/24 14:11 Pulse Rate 85 01/25/24 14:11 Respiratory Rate 16 01/25/24 14:11 Blood Pressure 194/85 H 01/25/24 14:11 Pulse Oximetry 99 01/25/24 14:11 Temperature 98.2 F
[2024-01-25] MEDS: atenoloL 50 MG TABLET PO (16:06)
[2024-01-25] MEDS: hydroCHLOROthiazide 25 MG TABLET PO (16:07)
[2024-01-25] MEDS: lisinopriL 20 MG TABLET PO (16:07)
== END 2024-01-25 17:02 | disposition home or self-care (01) ==
PROVIDERS: Emergency Provider Emergency Medicine; PCP Registered Nurse
DX: I10 Essential (primary) hypertension (principal); M25.512 Pain in left shoulder; T46.4X6A Underdosing of angiotensin-converting-enzyme inhibitors, initial encounter; M19.012 Primary osteoarthritis, left shoulder; M75.32 Calcific tendinitis of left shoulder; I51.7 Cardiomegaly
CPT/HCPCS: 73030; 93005; 99283; A4565; A9270

== ENCOUNTER 2024-11-08 15:20 | Emergency (ER) | payer SELFPAY ==
[2024-11-08] VITALS (8 sets, daily range): BP systolic 129–224; BP diastolic 78–120; PULSE 75–97; RESP 15–18; TEMP 36.7–37.5; O2SAT 98–100
--- NOTE | 2024-11-08 15:22 | ED.CHESTPAIN ---
HPI - Chest Pain General Chief Complaint: Chest Pain <Ann Baer PA-C - Last Filed: 11/09/24 15:24> Stated Complaint: cp <Ann Baer PA-C - Last Filed: 11/09/24 15:24> Time Seen by Provider: 11/08/24 15:22 <Ann Baer PA-C - Last Filed: 11/09/24 15:24> Focused HPI: This is a 49 year old female that presents to the ER for chest pain. This has been ongoing over the last 3 days. She feels short of breath. Reports associated back pain. Reports history of hypertension. No history of CAD. Reports family history of heart problems. She is not a smoker. She did not take her blood pressure medication today. GENERAL: Well-appearing, well-nourished, and in no acute distress. HEAD: Normocephalic, atraumatic. CHEST: Clear to auscultation. ?No respiratory distress. HEART: Regular rate and rhythm.? NEURO: ?Alert and oriented x3. Patient screened in triage and initial orders placed.? ?Additional care and disposition to be based upon?diagnostic testing and treatment. <Ann Baer PA-C - Last Filed: 11/09/24 15:24> History of Present Illness HPI narrative: Agree with the HPI above. Patient is primarily [place]-speaking but does understand and speak in Polish. Patient has no personal history of coronary disease or heart attack but has strong family history of coronary disease. Remote history of hypertension previously treated with antihypertensive but states that she was taking off of the med she was doing well. She presents hypertensive here today with chest pain radiating towards her back. No neurological complaints. Some pleuritic component to her chest discomfort as well. Denies any injuries, falls, recent trauma. No recent abdominal pain, nausea or vomiting. No weakness or neurological complaints. <Rickey Zambrano MD - Last Filed: 11/08/24 22:50> Related Data Home Medications: Home Medications ?Medication ?Instructions ?Recorded ?Confirmed ?Last Taken ?Type lisinopril-hydrochlorothiazide 10/21/23 Unknown History <Ann Baer PA-C - Last Filed: 11/09/24 15:24> Allergies/Adverse Reactions: Allergies Allergy/AdvReac Type Severity Reaction Status Date / Time No Known Allergies Allergy Verified 11/08/24 19:48 <Ann Baer PA-C - Last Filed: 11/09/24 15:24> Review of Systems Review of Systems: As reviewed above in HPI <Rickey Zambrano MD - Last Filed: 11/08/24 22:50> PMFSH Past Medical History Medical History: Medical History Patient denies medical problems <Ann Baer PA-C - Last Filed: 11/09/24 15:24> Surgical History Surgical History: Surgical History No pertinent past surgical history <Ann Baer PA-C - Last Filed: 11/09/24 15:24> Social History Social History: Social History Smoking status: Never smoker Substance use: never Gender identity (if verbalized by the patient): Female <Ann Baer PA-C - Last Filed: 11/09/24 15:24> Exam Narrative: GENERAL: [Well-appearing, well-nourished, and in no acute distress.] HEAD: [Normocephalic, atraumatic.] EYES: [PERRLA and EOMI.] ENT: Nares clear, no rhinorrhea or epistaxis. Mucous membranes moist. NECK: Supple. CHEST: [Clear to auscultation. No respiratory distress.] HEART: [Regular rate and rhythm]. No murmur heard. [Normal peripheral pulses.] ABDOMEN: [Soft, nondistended], [nontender], [No rigidity or guarding] EXTREMITIES: Normal range of motion. [No edema.] SKIN: Warm, dry, no rash. NEURO: [No focal deficits]. Alert and oriented [x3.] PSYCH: [Normal mood and affect.] <Rickey Zambrano MD - Last Filed: 11/08/24 22:50> Course Vital Signs Vital signs: Vital Signs Temperature 99.5 F 11/08/24 15:29 Pulse Rate 84 11/08/24 15:29 Respiratory Rate 18 11/08/24 15:29 Blood Pressure 198/115 H 11/08/24 15:29 Pulse Oximetry 99 11/08/24 15:29 Oxygen Delivery Room Air 11/08/24 15:29 Temperature 98.1 F 11/08/24 21:40 Pulse Rate 81 11/08/24 21:40 Respiratory Rate 16 11/08/24 21:40 Blood Pressure 129/78 11/08/24 21:40 Pulse Oximetry 100 11/08/24 21:40 Oxygen Delivery Room Air 11/08/24 19:49 <Ann Baer PA-C - Last Filed: 11/09/24 15:24> Vital Signs Temperature 99.5 F 11/08/24 15:29 Pulse Rate 84 11/08/24 15:29 Respiratory Rate 18 11/08/24 15:29 Blood Pressure 198/115 H 11/08/24 15:29 Pulse Oximetry 99 11/08/24 15:29 Oxygen Delivery Room Air 11/08/24 15:29 Temperature 98.1 F 11/08/24 21:40 Pulse Rate 81 11/08/24 21:40 Respiratory Rate 16 11/08/24 21:40 Blood Pressure 129/78 11/08/24 21:40 Pulse Oximetry 100 11/08/24 21:40 Oxygen Delivery Room Air 11/08/24 19:49 <Rickey Zambrano MD - Last Filed: 11/08/24 22:50> MDM - Chest Pain MDM Narrative Medical decision making narrative: 49-year-old otherwise healthy female with a past medical history of hypertension not presently on any antihypertensive medications. She is primarily [place]-speaking but does speak and understand [place]. Translation services were also used. Patient reports 3 days of ongoing chest pain radiating towards her back between her shoulder blades associated with a cough and pleuritic component to her chest discomfort. No recent injuries or illnesses. She is found to be markedly hypertensive with a blood pressure 224/118 in triage. No tachycardia, hypoxia or fever. She has 2+ symmetric pulses, clear breath sounds, no signs of extremity hypoperfusion or neurological complaints or deficits on exam. Suspicion presently is for hypertensive emergency, ACS, aortic syndrome, sudden cardiac dissection, pneumothorax, congestive heart failure, musculoskeletal chest pain. Cardiac workup ordered with serial troponins and EKG, CBC, CMP, lipase. CT angiography of the chest abdomen pelvis was obtained and she was given 10 mg of IV hydralazine and placed on [employer] and pulse oximetry. She was provided 4 mg of morphine for her pain. Initial workup shows no leukocytosis, hemoglobin of 9.6 which is around her baseline. Normal platelet count. Normal coags. Electrolytes within normal limits, normal renal function, negative troponin initial, normal hepatic function, normal glucose. Delta troponin also negative. Chest x-ray shows no acute cardiopulmonary pathology. Initial EKG shows sinus rhythm, left ventricular hypertrophy but no signs of acute occlusive event without any inversions, ST segment elevations or depressions. No ectopy. On her repeat 3 hour EKG there is new T-wave inversions in leads 1 and aVL which were not present on baseline EKG and no ST segment changes otherwise. Possible limb lead reversal versus potential occlusive event. CT angiography pending. Will obtain at 3rd EKG for comparison. Obtained a 3rd EKG which shows correction of the limb lead reversal which means the previous EKG was likely in error and not concerning. Patient's repeat 3rd hour troponin is negative. After pain controlled her blood pressure has normalized. Her pain is well tolerated at this time, CT scan shows an aortic pathology or dissection. There is some cholelithiasis with a distended gallbladder but no cholecystitis. She has no white count, no tenderness in this region, normal vital signs without fever. Likely she has symptomatic cholelithiasis which does explain her pain going towards her back as well. After we re-evaluated the patient multiple times she still had no recurrence for pain which is reassuring and her blood pressure is under control. After discussions with the patient about next steps we came to a shared decision that patient can be safely discharged home with outpatient general surgery follow-up and was given the appropriate contact info in clinic information. She was given pain control medications as needed for recurrence and she was given strict return precautions including developing fever without any response to Tylenol, intractable pain, nauseousness or vomiting or any other concerns. Patient's questions were answered she was safe for discharge at this time. <Ann Baer PA-C - Last Filed: 11/09/24 15:24> 49-year-old otherwise healthy female with a past medical history of hypertension not presently on any antihypertensive medications. She is primarily [place]-speaking but does speak and understand [place]. Translation services were also used. Patient reports 3 days of ongoing chest pain radiating towards her back between her shoulder blades associated with a cough and pleuritic component to her chest discomfort. No recent injuries or illnesses. She is found to be markedly hypertensive with a blood pressure 224/118 in triage. No tachycardia, hypoxia or fever. She has 2+ symmetric pulses, clear breath sounds, no signs of extremity hypoperfusion or neurological complaints or deficits on exam. Suspicion presently is for hypertensive emergency, ACS, aortic syndrome, sudden cardiac dissection, pneumothorax, congestive heart failure, musculoskeletal chest pain. Cardiac workup ordered with serial troponins and EKG, CBC, CMP, lipase. CT angiography of the chest abdomen pelvis was obtained and she was given 10 mg of IV hydralazine and placed on [employer] and pulse oximetry. She was provided 4 mg of morphine for her pain. Initial workup shows no leukocytosis, hemoglobin of 9.6 which is around her baseline. Normal platelet count. Normal coags. Electrolytes within normal limits, normal renal function, negative troponin initial, normal hepatic function, normal glucose. Delta troponin also negative. Chest x-ray shows no acute cardiopulmonary pathology. Initial EKG shows sinus rhythm, left ventricular hypertrophy but no signs of acute occlusive event without any inversions, ST segment elevations or depressions. No ectopy. On her repeat 3 hour EKG there is new T-wave inversions in leads 1 and aVL which were not present on baseline EKG and no ST segment changes otherwise. Possible limb lead reversal versus potential occlusive event. CT angiography pending. Will obtain at 3rd EKG for comparison. Obtained a 3rd EKG which shows correction of the limb lead reversal which means the previous EKG was likely in air and not concerning. Patient's repeat 3rd hour troponin is negative. After pain controlled her blood pressure has normalized. Her pain is well tolerated at this time, CT scan shows an aortic pathology or dissection. There is some cholelithiasis with a distended gallbladder but no cholecystitis. She has no white count, no tenderness in this region, normal vital signs without fever. Likely she has symptomatic cholelithiasis which does explain her pain going towards her back as well. After we re-evaluated the patient multiple times she still had no recurrence for pain which is reassuring and her blood pressure is under control. After discussions with the patient about next steps we came to a shared decision that patient can be safely discharged home with outpatient general surgery follow-up and was given the appropriate contact info in clinic information. She was given pain control medications as needed for recurrence and she was given strict return precautions including developing fever without any response to Tylenol, intractable pain, nauseousness or vomiting or any other concerns. Patient's questions were answered she was safe for discharge at this time. <Rickey Zambrano MD - Last Filed: 11/08/24 22:50> Medical Records Data Attestation: I reviewed the patient's medical records. <Rickey Zambrano MD - Last Filed: 11/08/24 22:50> Lab Data Attestation: I reviewed the patient's lab results. <Rickey Zambrano MD - Last Filed: 11/08/24 22:50> Result diagrams: 11/08/24 16:48 11/08/24 16:48 <Ann Baer PA-C - Last Filed: 11/09/24 15:24> Labs: Lab Results 11/08/24 11/08/24 11/08/24 Range/Units 16:48 19:03 21:22 WBC 7.3 (4.5-10.0) K/mm3 RBC 4.16 L (4.2-5.4) M/mm3 Hgb 9.6 L (12.0-15.0) g/dL Hct 31.4 L (37.0-47.0) % MCV 75.5 L (80-100) fl MCH 23.1 L (26-34) pg MCHC 30.6 L (32-36) g/dl RDW 16.7 H (11.5-14.5) % Plt Count 324 (150-375) k/mm3 MPV 10.5 H (7.4-10.4) fl Immature Gran % (Auto) 0.1 (0-0.5) % Neut % (Auto) 54.0 (45.5-73.1) % Lymph % (Auto) 35.1 (18.3-44.2) % [place] % (Auto) 8.0 (2.6-8.5) % Eos % (Auto) 2.2 (0-4.4) % Baso % (Auto) 0.6 (0.2-1.2) % Lymph # (Auto) 2.55 (0.9-3.2) K/mm3 [place] # (Auto) 0.6 (0.1-0.6) K/mm3 Eos # (Auto) 0.2 (0-0.3) K/mm3 Baso # (Auto) 0.0 (0.0-0.1) K/mm3 Abs Immat Gran (auto) 0.01 (0.00-0.031) K/mm3 Absolute Neuts (auto) 3.9 (1.3-6.7) K/mm3 Absolute Nucleated RBC 0.000 (0.0-0.012) K/mm3 Nucleated RBC % 0.0 (0.0-0.2) % PT 13.8 (11.1-14.7) Seconds INR 1.0 APTT 25.1 (22.3-36.8) Seconds Sodium 139 (137-145) mmol/L Potassium 4.1 (3.4-5.0) mmol/L Chloride 104 (98-107) mmol/L Carbon Dioxide 26 (22-30) mmol/L Anion Gap 9 (4-12) mmol/L BUN 14 (7-17) mg/dL Creatinine 0.52 L (0.7-1.0) mg/dL Estim Creat Clear Calc 102 ml/min Estimated GFR > 60 (59 - ) Glucose 108 (65-110) mg/dL Calcium 9.2 (8.4-10.2) mg/dL Total Bilirubin 0.4 (0.2-1.3) mg/dL AST 34 (14-36) U/L ALT 33 (6-35) U/L Alkaline Phosphatase 62 (38-126) U/L Troponin I < 0.012 < 0.012 < 0.012 (0.000-0.034) ng/mL Total Protein 8.0 (6.3-8.2) g/dL Albumin 4.2 (3.5-5.1) g/dL Lipase 42 (23-300) U/L <Ann Baer PA-C - Last Filed: 11/09/24 15:24> Lab Results 11/08/24 11/08/24 11/08/24 Range/Units 16:48 19:03 21:22 WBC 7.3 (4.5-10.0) K/mm3 RBC 4.16 L (4.2-5.4) M/mm3 Hgb 9.6 L (12.0-15.0) g/dL Hct 31.4 L (37.0-47.0) % MCV 75.5 L (80-100) fl MCH 23.1 L (26-34) pg MCHC 30.6 L (32-36) g/dl RDW 16.7 H (11.5-14.5) % Plt Count 324 (150-375) k/mm3 MPV 10.5 H (7.4-10.4) fl Immature Gran % (Auto) 0.1 (0-0.5) % Neut % (Auto) 54.0 (45.5-73.1) % Lymph % (Auto) 35.1 (18.3-44.2) % [place] % (Auto) 8.0 (2.6-8.5) % Eos % (Auto) 2.2 (0-4.4) % Baso % (Auto) 0.6 (0.2-1.2) % Lymph # (Auto) 2.55 (0.9-3.2) K/mm3 [place] # (Auto) 0.6 (0.1-0.6) K/mm3 Eos # (Auto) 0.2 (0-0.3) K/mm3 Baso # (Auto) 0.0 (0.0-0.1) K/mm3 Abs Immat Gran (auto) 0.01 (0.00-0.031) K/mm3 Absolute Neuts (auto) 3.9 (1.3-6.7) K/mm3 Absolute Nucleated RBC 0.000 (0.0-0.012) K/mm3 Nucleated RBC % 0.0 (0.0-0.2) % PT 13.8 (11.1-14.7) Seconds INR 1.0 APTT 25.1 (22.3-36.8) Seconds Sodium 139 (137-145) mmol/L Potassium 4.1 (3.4-5.0) mmol/L Chloride 104 (98-107) mmol/L Carbon Dioxide 26 (22-30) mmol/L Anion Gap 9 (4-12) mmol/L BUN 14 (7-17) mg/dL Creatinine 0.52 L (0.7-1.0) mg/dL Estim Creat Clear Calc 102 ml/min Estimated GFR > 60 (59 - ) Glucose 108 (65-110) mg/dL Calcium 9.2 (8.4-10.2) mg/dL Total Bilirubin 0.4 (0.2-1.3) mg/dL AST 34 (14-36) U/L ALT 33 (6-35) U/L Alkaline Phosphatase 62 (38-126) U/L Troponin I < 0.012 < 0.012 < 0.012 (0.000-0.034) ng/mL Total Protein 8.0 (6.3-8.2) g/dL Albumin 4.2 (3.5-5.1) g/dL Lipase 42 (23-300) U/L <Rickey Zambrano MD - Last Filed: 11/08/24 22:50> Imaging Data Attestation: I personally reviewed and interpreted this imaging study as follows: <Rickey Zambrano MD - Last Filed: 11/08/24 22:50> My impression: Impressions Chest X-Ray 11/08/24 16:01 IMPRESSION: No acute cardiopulmonary pathology. Chest/Abdomen/Pelvis CTA 11/08/24 21:11 IMPRESSION: CHEST: 1. No evidence of aortic dissection. 2. No acute cardiopulmonary pathology. ABDOMEN/PELVIS: 1. No evidence of aortic dissection. 2. Cholelithiasis with distended gallbladder. <Rickey Zambrano MD - Last Filed: 11/08/24 22:50> Critical Care Time Critical Care Time Critical Care Time: No <Ann Baer PA-C - Last Filed: 11/09/24 15:24> Discharge Plan Discharge Clinical Impression: Symptomatic cholelithiasis Chest pain Qualifiers: Chest pain type: unspecified Qualified Code(s): R07.9 - Chest pain, unspecified <Ann Baer PA-C - Last Filed: 11/09/24 15:24> Patient Disposition: Home, Self-Care <Ann Baer PA-C - Last Filed: 11/09/24 15:24> Condition: Stable <Ann Baer PA-C - Last Filed: 11/09/24 15:24> Instructions: Antibiotic Form, Biliary Colic (ED), Gallstones (ED), Laparoscopic Cholecystectomy (DC) <Ann Baer PA-C - Last Filed: 11/09/24 15:24> Additional Instructions: Follow-up with the general surgeon on outpatient basis. Return to the ER if you have any worsening pain, developing intractable nausea, vomiting, fevers not responsive the Tylenol or any other concerns. No indications to start joint blood pressure medicines at this time and I believe your blood pressure secondary to your pain. We will send you home with pain control medications as well as Zofran as needed. Call the surgeon's office tomorrow morning, return with any concerns. <Ann Baer PA-C - Last Filed: 11/09/24 15:24> Patient Language: Canadian <ISABEL Jeff Last Filed: 11/09/24 15:24> Prescriptions: New hydrocodone-acetaminophen 5-325 mg tablet 1 tablet PO Q8H PRN (Reason: pain) Qty: 14 0RF acetaminophen [Tylenol Extra Strength] 500 mg tablet 1,000 mg PO TID PRN (Reason: pain) Qty: 30 0RF ondansetron 4 mg tablet,disintegrating 4 mg PO Q8H PRN (Reason: nausea and vomiting) Qty: 10 0RF No Action atenolol 50 mg tablet 50 mg PO DAILY Qty: 30 0RF lisinopril-hydrochlorothiazide <ISABEL Jeff Last Filed: 11/09/24 15:24> Follow-up/Referrals: Dante,CLAUDIA Solis [Primary Care Provider] - Rohit Frederick MD [Physician] - 3 Days (Symptomatic cholelithiasis, evaluation for elective cholecystectomy) <Ann Baer PA-C - Last Filed: 11/09/24 15:24> Time of Disposition: 22:50 <ISABEL Jeff Last Filed: 11/09/24 15:24> 22:50 <Rickey Zambrano MD - Last Filed: 11/08/24 22:50>
[2024-11-08] MEDS: ASPIRIN 81 MG CHEWABLE TABLET 324 MG PO (16:50)
[2024-11-08 16:55] LABS: Basophils Percent Auto 0.6 % (0.2-1.2); Eosinophils Absolute Auto 0.2 K/mm3 (0-0.3); Eosinophils Percent Auto 2.2 % (0-4.4); Hematocrit 31.4 % (37.0-47.0); Hemoglobin 9.6 g/dL (12.0-15.0); Immature Granulocyte Absolute 0.01 K/mm3 (0.00-0.031); Immature Granulocyte Percent A 0.1 % (0-0.5); Lymphocytes Absolute Auto 2.55 K/mm3 (0.9-3.2); Lymphocytes Percent Auto 35.1 % (18.3-44.2); Mean Corpuscular HGB Conc 30.6 g/dl (32-36); Mean Corpuscular Hemoglobin 23.1 pg (26-34); Mean Corpuscular Volume 75.5 fl (80-100); Mean Platelet Volume 10.5 fl (7.4-10.4); Monocytes Absolute Auto 0.6 K/mm3 (0.1-0.6); Neutrophils Absolute Auto 3.9 K/mm3 (1.3-6.7); Platelet Count Result 324 k/mm3 (150-375); Red Blood Count 4.16 M/mm3 (4.2-5.4); Red Cell Distribution Width 16.7 % (11.5-14.5); White Blood Count 7.3 K/mm3 (4.5-10.0)
[2024-11-08 17:06] LABS: Prothrombin Time 13.8 Seconds (11.1-14.7)
[2024-11-08 17:07] LABS: Alanine Aminotransferase 33 U/L (6-35); Albumin Level 4.2 g/dL (3.5-5.1); Alkaline Phosphatase 62 U/L (38-126); Anion Gap 9 mmol/L (4-12); Aspartate Amino Transferase 34 U/L (14-36); Bilirubin,Total 0.4 mg/dL (0.2-1.3); Blood Urea Nitrogen 14 mg/dL (7-17); Calcium 9.2 mg/dL (8.4-10.2); Carbon Dioxide 26 mmol/L (22-30); Chloride 104 mmol/L (98-107); Estimated CRCL calculation 102 ml/min; Estimated Glomerular Filt Rate > 60; Glucose 108 mg/dL (65-110); Lipase 42 U/L (23-300); Partial Thromboplastin Time 25.1 Seconds (22.3-36.8); Potassium 4.1 mmol/L (3.4-5.0); Sodium 139 mmol/L (137-145)
[2024-11-08 17:19] LABS: Troponin I < 0.012 ng/mL (0.000-0.034)
[2024-11-08] MEDS: MORPHINE SULFATE (*CRX) 4 MG/ML INJ IV PUSH (19:30)
[2024-11-08 19:34] LABS: Troponin I < 0.012 ng/mL (0.000-0.034)
[2024-11-08] MEDS: hydrALAZINE HCL 20 MG/ML VIAL 10 MG IV PUSH (19:37)
[2024-11-08] MEDS: [UNRECOGNIZED DRUG - REMARK] XX (19:44)
[2024-11-08 21:51] LABS: Troponin I < 0.012 ng/mL (0.000-0.034)
== END 2024-11-08 22:59 | disposition home or self-care (01) ==
PROVIDERS: Physician Assistant; Emergency Provider Student in an Organized Health Care Education/Training Program; PCP Registered Nurse
DX: K80.20 Calculus of gallbladder without cholecystitis without obstruction (principal); R07.9 Chest pain, unspecified; I51.7 Cardiomegaly; R94.31 Abnormal electrocardiogram [ECG] [EKG]
CPT/HCPCS: 36415; 71046; 71275; 74174; 80053; 83690; 84484; 85025; 85610; 85730; 93005; 96374; 96375; 99284; A9270; J0360; J2270; Q9967